=== PATIENT | male | born 1990 | race Caucasian/White ===

== ENCOUNTER 2017-07-30 13:45 | Emergency (ER) | payer OTHER ==
[2017-07-30 13:57] VITALS: RESP 18
--- NOTE | 2017-07-30 14:14 | ED ---
General Adult HPI - General Chief complaint: Overdose Stated complaint: Overdose Time Seen by Provider: 07/30/17 13:59 Source: police, EMS, RN notes reviewed Mode of arrival: EMS Limitations: no limitations - History of Present Illness Initial comments: The patient for 27-year-old male who presents emergency room today by EMS, with chief complaint of a heroin overdose. Patient does admit to using heroin earlier today. Patient's girlfriend is at bedside stating that she was in the kitchen using the bathroom heard him fall down. She states that she called 911. They did administer Narcan. Patient states he is feeling fine at this time. He denies any complaints. Patient denies any recent fever, chills, shortness of breath, chest pain, back pain, abdominal pain, nausea or vomiting, numbness or tingling, headaches or visual changes, or any other complaints. - Related Data Home Medications Medication Instructions Recorded Confirmed Buprenorphine HCl/Naloxone HCl 0.5 film SL AC-LUNCH 07/30/17 07/30/17 [Suboxone 8 mg-2 mg Sl Film] Buprenorphine HCl/Naloxone HCl 1 film SL AC-BRKFST 07/30/17 07/30/17 [Suboxone 8 mg-2 mg Sl Film] Buprenorphine HCl/Naloxone HCl 1 film SL AC-SUPPER 07/30/17 07/30/17 [Suboxone 8 mg-2 mg Sl Film] Allergies Allergy/AdvReac Type Severity Reaction Status Date / Time erythromycin base Allergy Unknown Verified 07/30/17 13:51 [From Pediazole] sulfisoxazole Allergy Unknown Verified 07/30/17 13:51 [From Pediazole] theophylline Allergy Unknown Verified 07/30/17 13:51 Review of Systems ROS Statement: Those systems with pertinent positive or pertinent negative responses have been documented in the HPI. ROS Other: All systems not noted in ROS Statement are negative. Past Medical History Past Medical History: No Reported History History of Any Multi-Drug Resistant Organisms: None Reported Past Surgical History: Back Surgery Additional Past Surgical History / Comment(s): spinal surgery Past Psychological History: No Psychological Hx Reported Smoking Status: Current every day smoker Past Alcohol Use History: None Reported Past Drug Use History: Marijuana General Exam - General Exam Comments Initial Comments: General: The patient is awake and alert, in no distress, and does not appear acutely ill. Eye: Pupils are equal, round and reactive to light, extra-ocular movements are intact. No nystagmus. There is normal conjunctiva bilaterally. No signs of icterus. Ears, nose, mouth and throat: There are moist mucous membranes and no oral lesions. Neck: The neck is supple, there is no tenderness or JVD. Cardiovascular: There is a regular rate and rhythm. No murmur, rub or gallop is appreciated. Respiratory: Lungs are clear to auscultation, respirations are non-labored, breath sounds are equal. No wheezes, stridor, rales, or rhonchi. Musculoskeletal: Normal ROM, no tenderness. Strength 5/5. Sensation intact. Pulses equal bilaterally 2+. Neurological: A&O x 3. CN II-XII intact, There are no obvious motor or sensory deficits. Coordination appears grossly intact. Speech is normal. Skin: Skin is warm and dry and no rashes or lesions are noted. Psychiatric: Cooperative, appropriate mood & affect, normal judgment. Limitations: no limitations Course Vital Signs 07/30/17 07/30/17 13:51 14:41 Temperature 97.7 F 97.8 F Pulse Rate 98 89 Respiratory 18 18 Rate Blood Pressure 131/90 125/60 O2 Sat by Pulse 96 98 Oximetry Medical Decision Making - Medical Decision Making Patient has been observed here in the emergency room for the last hour has had no repeat symptoms. Patient will be discharged home the patient is advised to family doctor return to emergency room for any other concerns. Disposition Clinical Impression: Heroin overdose Disposition: HOME SELF-CARE Condition: Good Instructions: Narcotic Abuse (ED) Referrals: Paige Sarmiento MD [REFERRING] - 1-2 days Time of Disposition: 15:22
[2017-07-30 14:42] VITALS: BP 125/60; PULSE 89; TEMP 97.8
== END 2017-07-30 15:30 | disposition home or self-care (01) ==
LOC: EC 13:45
DX: T40.1X1A Poisoning by heroin, accidental (unintentional), initial encounter (principal); F17.200 Nicotine dependence, unspecified, uncomplicated; Z79.899 Other long term (current) drug therapy; Z88.1 Allergy status to other antibiotic agents; Z88.2 Allergy status to sulfonamides; Z88.8 Allergy status to other drugs, medicaments and biological substances
CPT/HCPCS: 99284

== ENCOUNTER → 2017-08-06 | Outpatient (CLI) | payer OTHER ==
--- NOTE | 2017-08-06 08:48 | US ---
EXAMINATION TYPE: US liver DATE OF EXAM: 08/06/2017 COMPARISON: NONE CLINICAL HISTORY: B18.2 Chronic Viral Hepatitis C. Chronic hepatitis C EXAM MEASUREMENTS: Liver Length: 14.4 cm Gallbladder Wall: 0.3 cm CBD: 0.4 cm Right Kidney: 10.8 x 4.9 x 4.8 cm Pancreas: visualized portions appear wnl Liver: appears wnl . No masses or cysts evident. Gallbladder: no evidence of stones. Gallbladder wall is 0.32 cm which is minimally thickened. Normal less than 0.3 cm. Evidence for sonographic Hill's sign: no CBD: wnl Right Kidney: no evidence of hydronephrosis or mass IMPRESSION: 1. No acute changes. 2. Minimal gallbladder wall thickening which appears nonspecific.
[2017-08-06 08:53] LABS: Basophils % (A) 0 %; Eosinophils # (A) 0.2 k/uL (0-0.7); Eosinophils % (A) 2 %; HCT 45.5 % (39.0-53.0); Lymphocytes # (A) 2.5 k/uL (1.0-4.8); Lymphocytes % (A) 30 %; MCH 28.2 pg (25.0-35.0); MCV 85.4 fL (80.0-100.0); Mean Platelet Volume 6.9; Monocytes # (A) 0.5 k/uL (0-1.0); Monocytes % (A) 6 %; Neutrophils % (A) 59 %; Platelet Count 262 k/uL (150-450); RBC 5.33 m/uL (4.30-5.90); RDW 12.5 % (11.5-15.5); WBC 8.4 k/uL (3.8-10.6)
[2017-08-06 09:33] LABS: ALT 68 U/L (21-72); AST 55 U/L (17-59); Albumin 4.2 g/dL (3.5-5.0); Alkaline Phosphatase 80 U/L (38-126); Anion Gap 9 mmol/L; Blood Urea Nitrogen 16 mg/dL (9-20); Carbon Dioxide 33 mmol/L (22-30); Chloride 99 mmol/L (98-107); Glucose 105 mg/dL (74-99); Potassium 4.7 mmol/L (3.5-5.1); Sodium 141 mmol/L (137-145); Total Bilirubin 0.7 mg/dL (0.2-1.3)
[2017-08-10 15:20] LABS: HCV Quant Log 6.26 (<1.08)
== END | disposition home or self-care (01) ==
LOC: RADUSWWP 08:13
PROVIDERS: ATTEND Internal Medicine Gastroenterology
DX: K82.8 Other specified diseases of gallbladder (principal); B18.2 Chronic viral hepatitis C
CPT/HCPCS: 76705; 80053; 85025; 87522; 87902

== ENCOUNTER 2017-12-25 08:23 | Emergency (ER) | payer OTHER ==
[2017-12-25 08:28] VITALS: BP 131/86; PULSE 99; RESP 20; TEMP 98
[2017-12-25] MEDS ORDERED: ONDANSETRON 4 MG ODT STARTER PACK 2 TAB BTL PO STA (09:00)
[2017-12-25] MEDS ORDERED: cloNIDine HCL 0.1 MG TAB PO STA (09:00)
--- NOTE | 2017-12-25 09:14 | ED ---
Recheck HPI - General Chief Complaint: Recheck/Abnormal Lab/Rx Stated Complaint: WITHDRAWALS Time Seen by Provider: 12/25/17 08:29 Source: patient, RN notes reviewed, old records reviewed Mode of arrival: ambulatory Limitations: no limitations - History of Present Illness Initial Comments: 27-year-old male presents emergency Department chief complaint of going through withdrawals. Apparently Patient went to [facility] rehab facility as determined on his history positive for too many types of illicit drugs. He stated that his withdrawal would be too severe further to handle at their facility. They suggested he go to the hospital for detox. Patient states that he last used heroin this morning. The Patient also reports that he violated his parole. He states that if he does not go to rehab facility he will be forced to go back to snf. - Related Data Home Medications Medication Instructions Recorded Confirmed Buprenorphine HCl/Naloxone HCl 1 film SL DAILY PRN 07/30/17 12/25/17 [Suboxone 8 mg-2 mg Sl Film] cloNIDine HCL [Catapres] 0.2 mg PO DAILY 12/25/17 12/25/17 lamoTRIgine [LaMICtal] 100 mg PO BID 12/25/17 12/25/17 Previous Rx's Medication Instructions Recorded Ondansetron Odt [Zofran Odt] 4 mg PO Q8HR PRN #15 tab 12/25/17 cloNIDine [Catapres-TTS] 1 patch TRANSDERM Q7DAYS #2 patch 12/25/17 Allergies Allergy/AdvReac Type Severity Reaction Status Date / Time erythromycin base Allergy Unknown Verified 12/25/17 08:50 [From Pediazole] sulfisoxazole Allergy Unknown Verified 12/25/17 08:50 [From Pediazole] theophylline Allergy Unknown Verified 12/25/17 08:50 Review of Systems ROS Statement: Those systems with pertinent positive or pertinent negative responses have been documented in the HPI. ROS Other: All systems not noted in ROS Statement are negative. Past Medical History Past Medical History: No Reported History History of Any Multi-Drug Resistant Organisms: None Reported Past Surgical History: Back Surgery Additional Past Surgical History / Comment(s): spinal surgery Past Psychological History: No Psychological Hx Reported Smoking Status: Current every day smoker Past Alcohol Use History: None Reported Past Drug Use History: Heroin, Marijuana, Methamphetamine, Opiates General Exam - General Exam Comments Initial Comments: 27-year-old male. Alert and oriented. No acute distress. Limitations: no limitations General appearance: alert, in no apparent distress Head exam: Present: atraumatic, normocephalic, normal inspection Eye exam: Present: normal appearance, PERRL, EOMI. Absent: scleral icterus, conjunctival injection, periorbital swelling ENT exam: Present: normal exam, mucous membranes moist Neck exam: Present: normal inspection. Absent: tenderness, meningismus, lymphadenopathy Respiratory exam: Present: normal lung sounds bilaterally. Absent: respiratory distress, wheezes, rales, rhonchi, stridor Cardiovascular Exam: Present: regular rate, normal rhythm, normal heart sounds. Absent: systolic murmur, diastolic murmur, rubs, gallop, clicks GI/Abdominal exam: Present: soft, normal bowel sounds. Absent: distended, tenderness, guarding, rebound, rigid Extremities exam: Present: normal inspection, full ROM, normal capillary refill. Absent: tenderness, pedal edema, joint swelling, calf tenderness Back exam: Present: normal inspection Neurological exam: Present: alert, oriented X3, CN II-XII intact Psychiatric exam: Present: normal affect, normal mood Course Vital Signs 12/25/17 12/25/17 08:24 09:28 Temperature 98.0 F 98.0 F Pulse Rate 99 99 Respiratory 20 20 Rate Blood Pressure 131/86 131/86 O2 Sat by Pulse 100 100 Oximetry Medical Decision Making - Medical Decision Making 89-year-old male presents seeking help for substance abuse. Discussed do not do withdrawal here. We'll give the Patient clonidine and Zofran. I did call and saw the [facility] and they would not take him because of his multiple drug abuse. Critical [place] they cannot get him in for 2 weeks. I suggested the Patient follow up with his forest fire management officer. Was given the information for other resources. Discussed that he can follow-up with resources, Narcotics Anonymous. He agrees treatment plan will comply. Return parameters were discussed. Disposition Clinical Impression: Withdrawal from opioids, Substance abuse Disposition: HOME SELF-CARE Condition: Good Instructions: Polysubstance Abuse (ED) Additional Instructions: Patient is to follow-up with [facility]. Also follow-up with her forest fire management officer and resources provided. Return to emergency department if any alarming signs or symptoms occur. Prescriptions: cloNIDine [Catapres-TTS] 1 patch TRANSDERM Q7DAYS #2 patch Ondansetron Odt [Zofran Odt] 4 mg PO Q8HR PRN #15 tab PRN Reason: Nausea Is patient prescribed a controlled substance at d/c from ED?: No When asked, does pt state using other controlled substances?: No If prescribed controlled substance>3 days was MAPS reviewed?: No If opioid is for acute pain is fill amount 7 days or less?: No If Rx opioid, was Start Talking consent form obtained?: No Referrals: None,Stated [Primary Care Provider] - 1-2 days Time of Disposition: 09:10
== END 2017-12-25 09:31 | disposition home or self-care (01) ==
LOC: EC 08:23
DX: F11.23 Opioid dependence with withdrawal (principal); F19.10 Other psychoactive substance abuse, uncomplicated; F17.200 Nicotine dependence, unspecified, uncomplicated; Z79.899 Other long term (current) drug therapy; Z88.1 Allergy status to other antibiotic agents; Z88.8 Allergy status to other drugs, medicaments and biological substances
CPT/HCPCS: 99284; S0119

== ENCOUNTER 2021-04-16 23:41 | Emergency (ER) | payer OTHER | END 2021-04-17 00:13 | disposition home or self-care (01) | LOC: EC 23:41 | DX: T40.1X1A Poisoning by heroin, accidental (unintentional), initial encounter (principal) | CPT/HCPCS: 99283 ==

== ENCOUNTER 2023-04-23 16:08 | Emergency (ER) | payer OTHER ==
[2023-04-23 17:49] VITALS: RESP 18
--- NOTE | 2023-04-23 19:04 | XR ---
EXAMINATION TYPE: XR ankle complete LT DATE OF EXAM: 04/23/2023 6:45 PM CLINICAL INDICATION:Male, 33 years old with history of l ankle pain; COMPARISON: None TECHNIQUE: The left ankle is imaged in frontal, lateral and oblique projections. FINDINGS: There is no evidence of acute osseous pathology. The joint spaces are well-preserved without evidenc e of subluxation or dislocation. Kager's fat pad is intact. Mild soft tissue swelling around the ankl e. No radiopaque foreign bodies are identified. IMPRESSION: 1. No evidence of acute fracture. 2. Subcutaneous swelling around the ankle likely secondary to underlying soft tissue injury.
--- NOTE | 2023-04-23 19:36 | ED ---
General Adult HPI - General Chief complaint: Extremity Injury, Lower Stated complaint: L ankle pain Time Seen by Provider: 04/23/23 19:09 Source: patient, RN notes reviewed Mode of arrival: ambulatory Limitations: no limitations - History of Present Illness Initial comments: 83-year-old male with no significant past medical history presents the emergency department with a chief complaint of left ankle pain. Patient reports left ankle pain since yesterday. He denies any known injury or trauma. He denies any numbness, tingling, weakness in the extremity. He did take aspirin last night which helped his symptoms. - Related Data Home Medications Medication Instructions Recorded Confirmed Buprenorphine HCl/Naloxone HCl 1 film SL DAILY PRN 07/30/17 12/25/17 [Suboxone 8 mg-2 mg Sl Film] cloNIDine HCL [Catapres] 0.2 mg PO DAILY 12/25/17 12/25/17 lamoTRIgine [LaMICtal] 100 mg PO BID 12/25/17 12/25/17 Previous Rx's Medication Instructions Recorded Ondansetron Odt [Zofran Odt] 4 mg PO Q8HR PRN #15 tab 12/25/17 cloNIDine [Catapres-TTS] 1 patch TRANSDERM Q7DAYS #2 patch 12/25/17 Allergies Allergy/AdvReac Type Severity Reaction Status Date / Time erythromycin base Allergy Unknown Verified 04/23/23 17:48 [From Pediazole] sulfisoxazole Allergy Unknown Verified 04/23/23 17:48 [From Pediazole] theophylline Allergy Unknown Verified 04/23/23 17:48 Review of Systems ROS Statement: Those systems with pertinent positive or pertinent negative responses have been documented in the HPI. ROS Other: All systems not noted in ROS Statement are negative. Past Medical History Past Medical History: No Reported History History of Any Multi-Drug Resistant Organisms: None Reported Past Surgical History: Back Surgery Additional Past Surgical History / Comment(s): spinal surgery Past Psychological History: No Psychological Hx Reported Smoking Status: Current every day smoker Past Alcohol Use History: None Reported Past Drug Use History: Heroin, Marijuana, Methamphetamine, Opiates General Exam - General Exam Comments Initial Comments: General: Alert, in no acute distress Head: atraumatic normocephalic. Eyes PERRL, EOMI intact, mucous membranes moist Respiratory: Lungs clear to auscultation bilaterally Cardiovascular: Rate regular rate and rhythm Abdominal: Soft without guarding or rebound Extremities: Normal inspection with full range of motion and normal capillary refill Neuroogic: alert and oriented 3, CN II-XII intact, able to ambulate with steady gait Skin: warm dry and intact with normal color Limitations: no limitations Course Vital Signs 04/23/23 04/23/23 17:46 20:07 Temperature 97.5 F L 98.1 F Pulse Rate 94 68 Respiratory 18 18 Rate Blood Pressure 118/78 132/74 O2 Sat by Pulse 97 98 Oximetry Medical Decision Making - Medical Decision Making Was pt. sent in by a medical professional or institution (, LANDEN, CARROTING MACHINE OPERATOR, urgent care, hospital, or fpc...) When possible be specific @ -[No] Did you speak to anyone other than the patient for history (EMS, parent, family, police, friend...)? What history was obtained from this source @ -[No] Did you review nursing and triage notes (agree or disagree)? Why? @ -[I reviewed and agree with nursing and triage notes] Were old charts reviewed (outside hosp., previous admission, EMS record, old EKG, old radiological studies, urgent care reports/EKG's, fpc records)? Report findings @ -[No old charts were reviewed] Differential Diagnosis (chest pain, altered mental status, abdominal pain women, abdominal pain men, vaginal bleeding, weakness, fever, dyspnea, syncope, headache, dizziness, GI bleed, back pain, seizure, CVA, palpatations, mental health, musculoskeletal)? @ -[not applicable] EKG interpreted by me (3pts min.). @ -[As above] X-rays interpreted by me (1pt min.). @ Left ankle XR negative for fracture or dislocation CT interpreted by me (1pt min.). @ -[None done] U/S interpreted by me (1pt. min.). @ -[None done] What testing was considered but not performed or refused? (CT, X-rays, U/S, labs)? Why? @ -[None] What meds were considered but not given or refused? Why? @ -[None] Did you discuss the management of the patient with other professionals (professionals i.e. , LANDEN, CARROTING MACHINE OPERATOR, lab, RT, psych nurse, marriage and family social worker, curing machine operator, teacher, human resources officer, case monitor)? Give summary @ -[No] Was smoking cessation discussed for >3mins.? @ -[No] Was critical care preformed (if so, how long)? @ -[No] Were there social determinants of health that impacted care today? How? (Homelessness, low income, unemployed, alcoholism, drug addiction, rose sportation, low edu. Level, literacy, decrease access to med. care, longterm, rehab)? @ -[No] Was there de-escalation of care discussed even if they declined (Discuss DNR or withdrawal of care, Hospice)? DNR status @ -[No] What co-morbidities impacted this encounter? (DM, HTN, Smoking, COPD, CAD, Cancer, CVA, ARF, Chemo, Hep., AIDS, mental health diagnosis, sleep apnea, morbid obesity)? @ -[None] Was patient admitted / discharged? Hospital course, mention meds given and route, prescriptions, significant lab abnormalities, going to OR and other pertinent info. @ Discharged, 33 yr old male presents to the ER with left ankle pain. Physical exam unremarkable. XR negative. I discussed results with the patient. All questions were addressed. Return precautions discussed. Patient discharged in stable condition. Case discussed with Dr. Mederos who agrees with POC Undiagnosed new problem with uncertain prognosis? @ -[No] Drug Therapy requiring intensive monitoring for toxicity (Heparin, Nitro, Insu jassi, Cardizem)? @ -[No] Were any procedures done? @ -[No] Diagnosis/symptom? @ -Left ankle sprain Acute, or Chronic, or Acute on Chronic? @ -Acute Uncomplicated (without systemic symptoms) or Complicated (systemic symptoms)? @ -Uncomplicated Side effects of treatment? @ -[No] Exacerbation, Progression, or Severe Exacerbation? @ -[No] Poses a threat to life or bodily function? How? (Chest pain, [place], [place], pneumonia, PE, COPD, DKA, ARF, appy, cholecystitis, CVA, Diverticulitis, Homicidal, Suicidal, threat to staff... and all critical care pts) @ -Low likelihood Disposition Clinical Impression: Left ankle pain Disposition: HOME SELF-CARE Condition: Stable Instructions (If sedation given, give patient instructions): Ankle Sprain (ED) Additional Instructions: PLease elevate when able Continue taking tylenol/motrin for pain as needed Please return to the nearest emergency department if symptoms worsen or persist Is patient prescribed a controlled substance at d/c from ED?: No Referrals: Paige Sarmiento MD [Primary Care Provider] - 1-2 days Time of Disposition: 19:36
[2023-04-23 20:09] VITALS: BP 132/74; PULSE 68; TEMP 98.1
== END 2023-04-23 20:08 | disposition home or self-care (01) ==
LOC: EC 16:08
DX: S93.402A Sprain of unspecified ligament of left ankle, initial encounter (principal); F17.200 Nicotine dependence, unspecified, uncomplicated; F12.90 Cannabis use, unspecified, uncomplicated; F11.90 Opioid use, unspecified, uncomplicated; F15.90 Other stimulant use, unspecified, uncomplicated; Z88.1 Allergy status to other antibiotic agents; Z88.8 Allergy status to other drugs, medicaments and biological substances; X58.XXXA Exposure to other specified factors, initial encounter
CPT/HCPCS: 99283